=== PATIENT | male | born 2000 | race African-American/Black ===

== ENCOUNTER 2019-01-09 21:01 | Emergency (ER) | payer SELFPAY ==
[2019-01-09] MEDS ORDERED: Lidocaine 1% 20 ML MDV INFILT ONE (21:02)
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
== END 2019-01-09 23:20 | disposition home or self-care (01) ==
LOC: FB.ED 21:01
DX: S06.0X1A Concussion with loss of consciousness of 30 minutes or less, initial encounter (principal); S01.01XA Laceration without foreign body of scalp, initial encounter; S50.811A Abrasion of right forearm, initial encounter; V19.40XA Pedal cycle driver injured in collision with unspecified motor vehicles in traffic accident, initial encounter
CPT/HCPCS: 12001; 12011; 70450; 72125; 99283; 99284; J2001

== ENCOUNTER 2020-04-03 19:18 | Emergency (ER) | payer MEDICAID ==
[2020-04-03] MEDS ORDERED: Acetaminophen/HYDROcodone 325-5 MG Tab PO ONE (19:19)
--- NOTE | 2020-04-03 20:24 | EDM.PDOC ---
ED HPI GENERAL MEDICAL PROBLEM - General Chief Complaint: Lower Extremity Injury/Pain Stated Complaint: FOOT INJURY Time Seen by Provider: 04/03/20 19:20 Source of Information: Reports: Patient History Limitations: Reports: No Limitations - History of Present Illness INITIAL COMMENTS - FREE TEXT/NARRATIVE: pt c/o right foot and ankle pain , tripped while playing [employer] this afternoon , denies any other injuries or any other medical concerns. - Related Data Allergies Allergy/AdvReac Type Severity Reaction Status Date / Time No Known Allergies Allergy Verified 04/03/20 19:51 Home Meds: Home Meds NK [No Known Home Meds] 01/09/19 [History] Past Medical History - Past Health History Medical/Surgical History: Denies Medical/Surgical History Respiratory History: Reports: Asthma Musculoskeletal History: Reports: Other (See Below) Other Musculoskeletal History: Right knee injury. Right ankle injury. Neurological History: Reports: Concussion, Other (See Below) Other Neuro History: Head laceration. Concussion. - Past Surgical History Other Surgical History Comment: No previous surgeries. Social & Family History - Family History Family Medical History: Noncontributory - Tobacco Use Smoking Status *Q: Never Smoker - Caffeine Use Caffeine Use: Reports: None - Living Situation & Occupation Occupation: Student (Student at [employer]) Review of Systems - Review of Systems Review Of Systems: See Below Constitutional: Reports: No Symptoms Respiratory: Reports: No Symptoms Cardiovascular: Reports: No Symptoms GI/Abdominal: Reports: No Symptoms Skin: Reports: No Symptoms ED EXAM, GENERAL - Physical Exam Exam: See Below Exam Limited By: No Limitations General Appearance: Alert, Mild Distress, Moderate Distress Head: Atraumatic, Normocephalic Neck: Normal Inspection, Supple, Non-Tender, Full Range of Motion Respiratory/Chest: No Respiratory Distress, Lungs Clear, Normal Breath Sounds Cardiovascular: Normal Peripheral Pulses, Regular Rate, Rhythm GI/Abdominal: Normal Bowel Sounds, Soft, Non-Tender Back Exam: Normal Inspection, Full Range of Motion Extremities: Normal Inspection, Normal Range of Motion Neurological: Alert, Oriented, CN II-XII Intact Skin Exam: Warm Course - Vital Signs Text/Narrative:: xray results were explained to pt, short leg splint was applied, pt came with crutches and will continue to use it, supportive mng was recommended along with ortho F/U this coming week, pre-pack on hydrocodone 8 tablets were given. Last Recorded V/S: Last Vital Signs Temp 37.0 C 04/03/20 19:30 Pulse 96 04/03/20 19:30 Resp 18 04/03/20 19:30 BP 103/85 04/03/20 19:30 Pulse Ox 95 04/03/20 19:30 - Orders/Labs/Meds Orders: Active Orders 24 hr Category Date Time Status Ankle Min 3V Rt [CR] Stat Exams 04/03/20 19:37 Taken Foot Comp Min 3V Rt [CR] Stat Exams 04/03/20 19:37 Taken Departure - Departure Time of Disposition: 20:24 Disposition: Home, Self-Care 01 Clinical Impression: Ankle fracture, Ankle fracture, right - Discharge Information Referrals: PCP,None [Primary Care Provider] - Sepsis Event Note (ED) - Evaluation Sepsis Screening Result: No Definite Risk - Focused Exam Vital Signs: Vital Signs Temp Pulse Resp BP Pulse Ox 04/03/20 19:30 37.0 C 96 18 103/85 95 - My Orders Last 24 Hours: My Active Orders 04/03/20 19:37 Ankle Min 3V Rt [CR] Stat Foot Comp Min 3V Rt [CR] Stat - Assessment/Plan Last 24 Hours: My Active Orders 04/03/20 19:37 Ankle Min 3V Rt [CR] Stat Foot Comp Min 3V Rt [CR] Stat
--- NOTE | 2020-04-06 10:41 | CR ---
INDICATION: Injury. RIGHT FOOT: Three views of the right foot were obtained 04/03/20 - no comparison. No acute fracture, dislocation or other significant bone or joint abnormality, in the foot. However, at the ankle, there is a posterior malleolar fracture site with slight overriding. IMPRESSION: 1. Large chip fracture fragment off the posterior malleolus at the ankle. 2. No evidence of a foot fracture or dislocation is identified. MTDD
--- NOTE | 2020-04-06 10:45 | CR ---
INDICATION: Injury. RIGHT ANKLE: Three views of the right ankle were obtained 04/03/20 and revealed a large posterior malleolar chip fracture fragment with posterior offset of the large chip fracture fragment. The ankle mortise also appears to be somewhat widened medially suggesting a lateral shift of the talus with respect to the tibia. At the lateral aspect of the talus, there is a small bony density which could represent a tiny avulsion chip fracture fragment. This could also be a soft tissue calcification from previous injury or an old chip fracture fragment that did not unite. No other bone or joint abnormality was identified. IMPRESSION: 1. Posterior malleolar chip fracture fragment with question of a small avulsion chip fracture fragment off the lateral aspect of the talus. 2. There appears to be a minimal subluxation with shift of the talus slightly laterally with respect to the tibia, widening the medial ankle mortise joint space. MTDD
== END 2020-04-03 20:45 | disposition home or self-care (01) ==
LOC: FB.ED 19:18
DX: S82.891A Other fracture of right lower leg, initial encounter for closed fracture (principal); J45.909 Unspecified asthma, uncomplicated; W01.0XXA Fall on same level from slipping, tripping and stumbling without subsequent striking against object, initial encounter; Y93.66 Activity, soccer
CPT/HCPCS: 29515; 73610; 73630; 99283; A9270

== ENCOUNTER 2021-05-06 17:41 | Emergency (ER) | payer MEDICAID ==
--- NOTE | 2021-05-06 18:55 | EDM.PDOC ---
ED HPI GENERAL MEDICAL PROBLEM - General Stated Complaint: NECK PAIN Time Seen by Provider: 05/06/21 17:55 Source of Information: Reports: Patient History Limitations: Reports: No Limitations - History of Present Illness INITIAL COMMENTS - FREE TEXT/NARRATIVE: Patient presented to the ED because of neck pain. He was playing football and one of the players landed on her neck. He c/o 6/10 left sided neck pain. No weakness or numbness of the UE-bilateral. Posterior neck pain Pain Score (Numeric/FACES): 3 - Related Data Allergies Allergy/AdvReac Type Severity Reaction Status Date / Time No Known Allergies Allergy Verified 04/03/20 19:51 Home Meds: Home Meds NK [No Known Home Meds] 01/09/19 [History] Past Medical History - Past Health History Medical/Surgical History: Denies Medical/Surgical History Respiratory History: Reports: Asthma Musculoskeletal History: Reports: Other (See Below) Other Musculoskeletal History: Right knee injury. Right ankle injury. Neurological History: Reports: Concussion, Other (See Below) Other Neuro History: Head laceration. Concussion. - Past Surgical History Other Surgical History Comment: No previous surgeries. Social & Family History - Family History Family Medical History: No Pertinent Family History - Caffeine Use Caffeine Use: Reports: None - Living Situation & Occupation Occupation: Student (Student at [employer]) ED ROS GENERAL - Review of Systems Review Of Systems: See Below Constitutional: Reports: No Symptoms HEENT: Reports: No Symptoms Respiratory: Reports: No Symptoms Cardiovascular: Reports: No Symptoms Endocrine: Reports: No Symptoms GI/Abdominal: Reports: No Symptoms : Reports: No Symptoms Musculoskeletal: Reports: No Symptoms Skin: Reports: No Symptoms Neurological: Reports: No Symptoms Psychiatric: Reports: No Symptoms ED EXAM, UPPER BACK/NECK PAIN - Physical Exam Exam: See Below Exam Limited By: No Limitations General Appearance: Alert, No Apparent Distress Eye Exam: Bilateral Eye: PERRL Ears Exam: Normal External Exam, Normal Canal, Hearing Grossly Normal, Normal TMs Nose Exam: Normal Inspection, Normal Mucousa, No Blood Throat/Mouth Exam: Normal Inspection, Normal Lips, Normal Teeth, Normal Gums, Normal Oropharynx, Normal Voice Head Exam: Atraumatic, Normocephalic Neck Exam: Normal Inspection, Muscle Spasm, Tender Lateral Cardiovascular/Respiratory: Regular Rate, Rhythm, No M/R/G, Normal Peripheral Pulses, No JVD GI/Abdominal: Normal Bowel Sounds, Soft, Non-Tender, No Organomegaly, No Distention, No Abnormal Bruit Back Exam: Normal Inspection, Full Range of Motion Extremities: Normal Inspection, Normal Range of Motion, Non-Tender Neurologic: film processor II-XII nml As Tested, No Motor/Sensory Deficits, Alert, Normal Mood/Affect, Oriented x 3 Psychiatric: Normal Affect Course - Vital Signs Text/Narrative:: Naomy [id number] Last Recorded V/S: Last Vital Signs Temp 36.3 C 05/06/21 17:49 Pulse 58 L 05/06/21 19:05 Resp 18 05/06/21 19:05 BP 131/86 05/06/21 19:05 Pulse Ox 98 05/06/21 19:05 Departure - Departure Time of Disposition: 18:55 Disposition: Home, Self-Care 01 Condition: Good Clinical Impression: Neck injury, Cervical strain - Discharge Information Instructions: Neck Contusion, Cervical Sprain, [id number] Referrals: PCP,None [Primary Care Provider] - Forms: ED Department Discharge Additional Instructions: Please read dischrage instruction on neck injury and muscle strain Apply ice Take ibuprofen 800 mg with tylenol 1000 mg every 8 hours as needed for pain Follow up as needed
--- NOTE | 2021-05-07 11:16 | CR ---
CERVICAL SPINE THREE VIEWS INDICATION: Neck injury, hit in football. FINDINGS: Three views of the cervical spine reveal the odontoid to appear intact. Alignment of vertebral bodies appears to be normal except slight straightening of the upper cervical lordosis. Vertebral body and disc heights were maintained. Prevertebral space and bone density appear to be normal. An acute fracture or dislocation was not seen. IMPRESSION: Essentially normal cervical spine. There is some straightening of the upper cervical lordosis. Report was called to Dr. Andrade at 1840 hours 05/06/21. [facility]
== END 2021-05-06 19:07 | disposition home or self-care (01) ==
LOC: FB.ED 17:41
DX: S16.1XXA Strain of muscle, fascia and tendon at neck level, initial encounter (principal); W50.0XXA Accidental hit or strike by another person, initial encounter; Y93.61 Activity, american tackle football
CPT/HCPCS: 72040; 99283-25

== ENCOUNTER 2022-04-26 02:52 | Emergency (ER) | payer MEDICAID ==
[2022-04-26] MEDS ORDERED: predniSONE 20 MG Tab PO ONE (04:51)
[2022-04-26] MEDS ORDERED: Albuterol/Ipratropium 3.0-0.5 MG/3 ML Neb Soln NEB ONE (04:51)
== END 2022-04-26 06:27 | disposition home or self-care (01) ==
LOC: FB.ED 02:52
DX: S20.211A Contusion of right front wall of thorax, initial encounter (principal); J45.901 Unspecified asthma with (acute) exacerbation; E66.9 Obesity, unspecified; Z68.32 Body mass index [BMI] 32.0-32.9, adult; W03.XXXA Other fall on same level due to collision with another person, initial encounter
CPT/HCPCS: 71101; 94640; 99284; J7512; J7620

== ENCOUNTER 2022-08-25 00:42 | Emergency (ER) | payer OTHER, MEDICAID ==
[2022-08-25 01:57] LABS: ESTIMATED GFR 79 mL/min (>60)
[2022-08-25 02:56] LABS: BASE EXCESS VENOUS,POC 2 mmol/L (-2 - 3+); PCO2 VENOUS,POC 48 mmHg (41-51); PH VENOUS,POC 7.38 pH Units (7.32-7.43)
== END 2022-08-25 04:50 | disposition home or self-care (01) ==
LOC: FB.ED 00:42
DX: T75.4XXA Electrocution, initial encounter (principal); I49.8 Other specified cardiac arrhythmias; E66.9 Obesity, unspecified; Z68.33 Body mass index [BMI] 33.0-33.9, adult
CPT/HCPCS: 36415; 80053; 81001; 82550; 83735; 84484; 85025; 93005; 93010; 99283